=== PATIENT | female | born 1965 | race Caucasian/White ===

== ENCOUNTER 2018-09-30 13:31 | Emergency (ER) | payer OTHER ==
[~2018-09-30] VITALS: Ht 175.3 cm; Wt 113.4 kg
[~2018-09-30 13:31] MED LIST: INTESTINEX1 CAP PO; NABUMETONE500 MG PO; PERCOCET 5/3251 TAB PO; PROTONIX20 MG PO; SYNTHROID150 MCG; ZOFRAN4 MG SL
== END 2018-09-30 22:22 | disposition home or self-care (01) ==
LOC: ER 13:31
DX: R42 Dizziness and giddiness (principal); G62.89 Other specified polyneuropathies